=== PATIENT | female | born 1975 | race Caucasian/White ===

== ENCOUNTER 2017-05-20 23:50 | Emergency (ER) | payer BC ==
[~2017-05-20] VITALS: Ht 154.9 cm; Wt 74.8 kg
[~2017-05-20 23:50] MED LIST: AUG875 PO
[2017-05-21 00:07] VITALS: BP_SYST 167
[2017-05-21 02:32] VITALS: BP_SYST 136
== END 2017-05-21 02:32 | disposition home or self-care (01) ==
LOC: SED 23:50
DX: F41.0 Panic disorder [episodic paroxysmal anxiety] (principal); Z88.5 Allergy status to narcotic agent; Z88.6 Allergy status to analgesic agent
CPT/HCPCS: 36415; 81025; 84702-TC; 93005; 99285

== ENCOUNTER 2019-03-29 13:08 | Emergency (ER) | payer BC ==
[~2019-03-29] VITALS: Ht 162.6 cm; Wt 72.6 kg
[2019-03-29 13:10] VITALS: BP_SYST 170
--- NOTE | 2019-03-29 13:10 | NUR ---
Patient to ER bed 7 to gown for evaluation. Side rails up. Report given to OMKAR Gómez.
--- NOTE | 2019-03-29 13:25 | NUR ---
Accucheck 86. Dr. Warren notified.
--- NOTE | 2019-03-29 13:28 | NUR ---
Patient AAO x 4 ambulates with minimal assistance from to bed 07 with c/o vaginal bleeding. Worse this afternoon just before visiting. Passing clots and feeling dizzy. G9, P4. Reports taking Misoprostol on Saturday and Saturday for miscarriage. History of hypertension and takes Hydralazine for elevated BP. Patient placed on cardiac rn, BP cuff, and pulse oximetry. Will continue to monitor condition.
--- NOTE | 2019-03-29 13:34 | NUR ---
ER Dr. Warren at bedside examining patient.
[2019-03-29 13:42] LABS: BILIRUBIN,URINE NEGATIVE (NEGATIVE); BLOOD, URINE 3+ (NEGATIVE); CLARITY/URINE SL CLOUDY (CLEAR); COLOR,URINE YELLOW (YELLOW); GLUCOSE,URINE NEGATIVE (NEGATIVE); KETONES,URINE NEGATIVE (NEGATIVE); LEUKOCYTE ESTERASE ,URINE TRACE (NEGATIVE); NITRITE, URINE NEGATIVE (NEGATIVE); PH,URINE 5.5 (5.0-8.0); PROTEIN URINE NEGATIVE (NEGATIVE); UROBILINOGEN,URINE 0.2 (0.2-1.0)
[2019-03-29 13:44] LABS: BASOPHILS # (AUTO) 0.1 K/uL (0.0-0.2); BASOPHILS % (AUTO) 0.7 % (0.0-2.0); EOSINOPHILS # (AUTO) 0.1 K/uL (0.0-0.4); EOSINOPHILS % (AUTO) 1.5 % (0.0-4.0); HEMATOCRIT 35.8 % (36-48); HEMOGLOBIN 11.9 g/dL (12.0-16.0); LYMPHOCYTES # (AUTO) 1.8 K/uL (1.0-5.5); LYMPHOCYTES % (AUTO) 25.9 % (20.5-51.5); MEAN CORPUSCULAR HEMOGLOBIN 29 pg (27-31); MEAN CORPUSCULAR HGB CONC 33 % (32-36); MEAN CORPUSCULAR VOLUME 88 fL (79.0-98.0); MONOCYTES # (AUTO) 0.5 K/uL (0.0-1.0); MONOCYTES % (AUTO) 7.6 % (1.7-9.3); NEUTROPHILS # (AUTO) 4.5 K/uL (1.8-7.7); NEUTROPHILS % (AUTO) 64.3 % (40.0-70.0); PLATELET COUNT (AUTO) 305 K/uL (130-430); RED BLOOD CELL COUNT(AUTO) 4.08 MIL/uL (4.2-6.2); RED CELL DISTRIBUTION WIDTH 14.7 % (9.0-15.0)
[2019-03-29 13:48] LABS: BACTERIA,URINE FEW /HPF (None Seen); RBC,URINE 20-50 /HPF (0-3)
--- NOTE | 2019-03-29 15:22 | NUR ---
Dr. Warren spoke with Dr. Sun via phone patient to follow up in one week.
[2019-03-29 15:37] VITALS: BP_SYST 164
--- NOTE | 2019-03-29 15:37 | NUR ---
Patient given written and verbal discharge instructions and verbalizes understanding. ER MD discussed with patient the results and treatment provided. Patient in stable condition. ID arm band removed. Rx not given. Patient educated on pain management and to follow up with PMD. Pain Scale 0/10. Opportunity for questions provided and answered. Medication side effect fact sheet provided.
== END 2019-03-29 15:37 | disposition home or self-care (01) ==
LOC: SED 13:08
DX: O03.9 Complete or unspecified spontaneous abortion without complication (principal)
CPT/HCPCS: 36415; 76830-TC; 76856-TC; 76857; 81000-TC; 84702-TC; 85025; 86900; 86901; 99284

== ENCOUNTER 2021-01-15 19:02 | Emergency (ER) | payer BC ==
[~2021-01-15] VITALS: Ht 157.5 cm; Wt 76.2 kg
[2021-01-15 19:45] LABS: BASOPHILS # (AUTO) 0.1 K/uL (0.0-0.2); BASOPHILS % (AUTO) 0.5 % (0.0-2.0); EOSINOPHILS % (AUTO) 0.2 % (0.0-4.0); HEMOGLOBIN 12.8 g/dL (12.0-16.0); LYMPHOCYTES # (AUTO) 1.7 K/uL (1.0-5.5); LYMPHOCYTES % (AUTO) 11.7 % (20.5-51.5); MEAN CORPUSCULAR HEMOGLOBIN 28 pg (27-31); MEAN CORPUSCULAR HGB CONC 33 % (32-36); MEAN CORPUSCULAR VOLUME 84 fL (79.0-98.0); MONOCYTES # (AUTO) 0.3 K/uL (0.0-1.0); MONOCYTES % (AUTO) 2.1 % (1.7-9.3); NEUTROPHILS # (AUTO) 12.2 K/uL (1.8-7.7); NEUTROPHILS % (AUTO) 85.5 % (40.0-70.0); PLATELET COUNT (AUTO) 359 K/uL (130-430); RED BLOOD CELL COUNT(AUTO) 4.63 MIL/uL (4.2-6.2); RED CELL DISTRIBUTION WIDTH 15.8 % (9.0-15.0); WHITE BLOOD COUNT (AUTO) 14.2 K/uL (4.8-10.8)
[2021-01-15 19:47] VITALS: BP_SYST 140
--- NOTE | 2021-01-15 19:50 | NUR ---
PLACED IN ER HALLWAY. WILL ASSUME CARE OF PATIENT
--- NOTE | 2021-01-15 19:52 | NUR ---
PATIENT BROUGHT IN COMPLAINING OF LLQ ABDOMINAL PAIN 3/10 NON RADIATING. DENIES ANY VAGINAL BLEEDING. A1 AND HAD INVITRO DONE ON 12/02 AND 12/06 FERTILIZED. REPORTS SEEING 1 VIABLE EMBROYO. REFERRED BY DR STOKES TO RULE OUT ECTOPIC.
--- NOTE | 2021-01-15 19:55 | NUR ---
ER Dr. SCHMID at bedside examining patient.
--- NOTE | 2021-01-15 20:15 | NUR ---
PATIENT IN ULTRASOUND FOR PELVIC ULTRASOUND, WITNESSED BY MYSELF.
[2021-01-15 20:45] VITALS: BP_SYST 140
--- NOTE | 2021-01-15 20:45 | NUR ---
Patient given written and verbal discharge instructions and verbalizes understanding. ER MD discussed with patient the results and treatment provided. Patient in stable condition. ID arm band removed. NO RX given. Patient educated on pain management and to follow up with DR. STOKES. Pain Scale 0/10 Opportunity for questions provided and answered.
== END 2021-01-15 20:45 | disposition home or self-care (01) ==
LOC: SED 19:02
DX: O26.891 Other specified pregnancy related conditions, first trimester (principal); R10.32 Left lower quadrant pain; Z79.899 Other long term (current) drug therapy; Z88.5 Allergy status to narcotic agent; Z88.6 Allergy status to analgesic agent; Z3A.01 Less than 8 weeks gestation of pregnancy
CPT/HCPCS: 36415; 76801; 76817; 85025; 99284

== ENCOUNTER 2022-07-10 20:24 | Day surgery (SDC) | payer BC ==
[~2022-07-10] VITALS: Ht 154.9 cm; Wt 80.3 kg
[2022-07-10 20:28] VITALS: BP_SYST 143
[2022-07-10 21:52] LABS: BASOPHILS # (AUTO) 0.1 K/uL (0.0-0.2); BASOPHILS % (AUTO) 0.9 % (0.0-2.0); EOSINOPHILS # (AUTO) 0.1 K/uL (0.0-0.4); EOSINOPHILS % (AUTO) 1.5 % (0.0-4.0); HEMATOCRIT 36.7 % (36-48); HEMOGLOBIN 11.9 g/dL (12.0-16.0); LYMPHOCYTES # (AUTO) 2.1 K/uL (1.0-5.5); LYMPHOCYTES % (AUTO) 25.9 % (20.5-51.5); MEAN CORPUSCULAR HEMOGLOBIN 28 pg (27-31); MEAN CORPUSCULAR HGB CONC 32 % (32-36); MEAN CORPUSCULAR VOLUME 86 fL (79.0-98.0); MONOCYTES # (AUTO) 0.5 K/uL (0.0-1.0); MONOCYTES % (AUTO) 6.2 % (1.7-9.3); NEUTROPHILS # (AUTO) 5.3 K/uL (1.8-7.7); NEUTROPHILS % (AUTO) 65.5 % (40.0-70.0); PLATELET COUNT (AUTO) 270 K/uL (130-430); RED BLOOD CELL COUNT(AUTO) 4.29 MIL/uL (4.2-6.2); RED CELL DISTRIBUTION WIDTH 15.5 % (9.0-15.0); WHITE BLOOD COUNT (AUTO) 8.1 K/uL (4.8-10.8)
[2022-07-10 22:03] LABS: INR 0.9 (0.8-1.2); PROTHROMBIN TIME 9.7 SECS (9.5-12.5)
[2022-07-11 00:58] LABS: CALCIUM 7.9 mg/dL (8.4-11.0); CREATININE 0.7 mg/dL (0.55-1.30)
[2022-07-11 01:01] LABS: BILIRUBIN,URINE NEGATIVE (NEGATIVE); BLOOD, URINE NEGATIVE (NEGATIVE); CLARITY/URINE CLEAR (CLEAR); COLOR,URINE YELLOW (YELLOW); GLUCOSE,URINE NEGATIVE (NEGATIVE); KETONES,URINE 1+ (NEGATIVE); LEUKOCYTE ESTERASE ,URINE NEGATIVE (NEGATIVE); NITRITE, URINE NEGATIVE (NEGATIVE); PH,URINE 6.5 (5.0-8.0); PROTEIN URINE NEGATIVE (NEGATIVE); UROBILINOGEN,URINE 0.2 (0.2-1.0)
[2022-07-11 01:03] LABS: ALBUMIN 2.8 g/dL (3.4-4.8); TOTAL BILIRUBIN 0.4 mg/dL (0.0-1.0)
[2022-07-11] MEDS ORDERED: LR 1,000 ML IV.SOLN IV ONE (01:10)
[2022-07-11] MEDS ORDERED: fentaNYL CITRATE/PF 100 MCG/2 ML AMP ONE (01:10)
[2022-07-11] MEDS ORDERED: ROCURONIUM BROMIDE 10 MG/ML (ZEMURON) ONE (01:10)
[2022-07-11] MEDS ORDERED: BUPIVACAINE /EPINEPHRINE/PF 0.5% 30 ML VIAL INJ ONE (01:10)
[2022-07-11] MEDS ORDERED: NS IRRIG SOLN 1000 ML IR ONE (01:10)
[2022-07-11] MEDS ORDERED: PROPOFOL 200MG/ 20ML VIAL (DIPRIVAN) IV ONE (01:10)
[2022-07-11] MEDS ORDERED: ceFAZolin SODIUM 1 GM VIAL ONE (01:10)
[2022-07-11] MEDS ORDERED: MIDAZOLAM HCL/PF 2 MG/2 ML SYRINGE ONE (01:10)
[2022-07-11] MEDS ORDERED: METOCLOPRAMIDE HCL 10 MG/2 ML VIAL IVP PRN (01:45)
[2022-07-11] MEDS ORDERED: fentaNYL CITRATE/PF 100 MCG/2 ML AMP IVP PRN ×2 (01:45)
[2022-07-11] MEDS ORDERED: ONDANSETRON HCL 4 MG/2 ML VIAL IVP PRN ×3 (01:45→04:00)
[2022-07-11] MEDS ORDERED: HYDROcodone/ACETAMIN 5-325 MG TAB (NORCO/ VICODIN) PO PRN (02:15)
[2022-07-11] MEDS ORDERED: OXYCODONE/ACETAMINOPHEN 5-325 TABLET PO PRN ×2 (02:15)
[2022-07-11 02:45] VITALS: BP_SYST 140
[2022-07-11] MEDS: fentaNYL CITRATE/PF 100 MCG/2 ML AMP ONE ×2 (02:53→03:01)
[2022-07-11] MEDS ORDERED: KETOROLAC TROMETHAMINE 60 MG/2 ML VIAL IM ONE (03:52)
[2022-07-11] MEDS ORDERED: ONDANSETRON HCL 4 MG/2 ML VIAL ONE (04:06)
[2022-07-11] MEDS ORDERED: LR 1,000 ML IV SCH (04:15)
[2022-07-11] MEDS ORDERED: SIMETHICONE 80 MG TAB.CHEW PO SCH (09:00)
[2022-07-11] MEDS ORDERED: IBUPROFEN 600 MG TABLET ONE (11:23)
[2022-07-11] MEDS ORDERED: HYDR-3919 PO (12:23)
== END 2022-07-11 14:05 | disposition home or self-care (01) ==
LOC: SED 20:24 → SMU 07-11 00:07 → SPU 07-11 00:07 → SDS 07-11 00:07 → SMU 07-11 00:59 → SDS 07-11 14:05
PROVIDERS: ATTEND Specialist
DX: R10.2 Pelvic and perineal pain (principal); N83.8 Other noninflammatory disorders of ovary, fallopian tube and broad ligament; N72 Inflammatory disease of cervix uteri; I10 Essential (primary) hypertension; Z79.899 Other long term (current) drug therapy; Z20.822 Contact with and (suspected) exposure to COVID-19
CPT/HCPCS: 84702; 85025; 85610; 85730; 36415; 76801; 76817; 58661; 58120; 80053; 87081; 99285; 96361; 96374; 96375; 96372; 81003; 88305; 87426; J3490; J0690; J1885; J2765; J3465; J2405; J2704; J3010; J7120; C1782; C1727

== ENCOUNTER 2022-12-08 16:05 | Emergency (ER) | payer BC ==
[~2022-12-08] VITALS: Ht 157.5 cm; Wt 79.8 kg
[~2022-12-08 16:05] MED LIST changes: +HYDR-3919 PO
[2022-12-08 16:10] VITALS: BP_SYST 177; PULSE 96; RESP 18; TEMP 98.3; O2SAT 98
[2022-12-08 17:09] LABS: BASOPHILS # (AUTO) 0.1 K/uL (0.0-0.2); BASOPHILS % (AUTO) 0.5 % (0.0-2.0); EOSINOPHILS # (AUTO) 0.2 K/uL (0.0-0.4); HEMATOCRIT 35.3 % (36-48); HEMOGLOBIN 11.1 g/dL (12.0-16.0); INR 0.9 (0.8-1.2); LYMPHOCYTES # (AUTO) 2.6 K/uL (1.0-5.5); LYMPHOCYTES % (AUTO) 17.9 % (20.5-51.5); MEAN CORPUSCULAR HEMOGLOBIN 26 pg (27-31); MEAN CORPUSCULAR HGB CONC 32 % (32-36); MEAN CORPUSCULAR VOLUME 82 fL (79.0-98.0); MONOCYTES # (AUTO) 0.9 K/uL (0.0-1.0); MONOCYTES % (AUTO) 6.4 % (1.7-9.3); NEUTROPHILS # (AUTO) 10.7 K/uL (1.8-7.7); NEUTROPHILS % (AUTO) 74.2 % (40.0-70.0); PLATELET COUNT (AUTO) 347 K/uL (130-430); PROTHROMBIN TIME 9.6 SECS (9.5-12.5); RED BLOOD CELL COUNT(AUTO) 4.29 MIL/uL (4.2-6.2); RED CELL DISTRIBUTION WIDTH 15.9 % (9.0-15.0); WHITE BLOOD COUNT (AUTO) 14.5 K/uL (4.8-10.8)
[2022-12-08 17:15] LABS: ALBUMIN 2.7 g/dL (3.4-4.8); CALCIUM 8.3 mg/dL (8.4-11.0); CREATININE 0.72 mg/dL (0.55-1.30); POTASSIUM 3.6 mmol/L (3.5-5.1); TOTAL BILIRUBIN 0.2 mg/dL (0.0-1.0); TOTAL PROTEIN, SERUM 6.3 g/dL (6.4-8.3)
[2022-12-08 18:52] VITALS: BP_SYST 177; PULSE 96; RESP 18; TEMP 98.3; O2SAT 98
== END 2022-12-08 18:52 | disposition home or self-care (01) ==
LOC: SED 16:05
DX: S86.812A Strain of other muscle(s) and tendon(s) at lower leg level, left leg, initial encounter (principal); Z79.899 Other long term (current) drug therapy; X58.XXXA Exposure to other specified factors, initial encounter; Y93.89 Activity, other specified; Y92.89 Other specified places as the place of occurrence of the external cause; Y99.8 Other external cause status
CPT/HCPCS: 36415; 80053; 85025; 85610-TC; 85730-TC; 93971; 99284